=== PATIENT | male | born 1970 | race Caucasian/White ===

== ENCOUNTER 2016-07-07 00:14 | Inpatient (IN) | payer SELFPAY ==
[2016-07-07] VITALS (7 sets, daily range): BP systolic 112–141; BP diastolic 76–86; PULSE 72–107; RESP 16–20; TEMP 97.1–101.7; O2SAT 96–99
[~2016-07-07] VITALS: Ht 177.8 cm; Wt 72.0 kg
[2016-07-07] MEDS ORDERED: CLON0.1T PO (00:41)
[2016-07-07] MEDS ORDERED: LISI2.5T3 PO (00:41)
--- NOTE | 2016-07-07 00:53 | PD ---
HPI Chief Complaint: Skin Problem Time Seen by Provider: 00:35 Travel History International Travel<30 days: No Contact w/Intl Traveler<30days: No Traveled to known affect area: No History of Present Illness HPI This patient complains of a skin infection to his right arm. He frequently injects IV methamphetamine and IV heroin. This is an injection site that got infected. Duration 3 days. Severity is moderate. He is developed fever. No alleviating factors. [facility] Social History Alcohol Use: Yes Tobacco Use: Yes Substance Use: Yes Allergies-Medications (Allergen,Severity, Reaction): Coded Allergies: Zithromax (Verified Adverse Reaction, Mild, Nausea/Vomiting, 07/07/16) Reported Meds & Prescriptions Reported Meds & Active Scripts Active Reported Clonidine (Clonidine HCl) 0.1 Mg Tab 0.1 Mg PO BID Lisinopril 2.5 Mg Tab 2.5 Mg PO DAILY Review of Systems General / Constitutional: Positive: Fever Eyes: No: Visual changes HENT: No: Headaches Cardiovascular: No: Chest Pain or Discomfort Respiratory: No: Shortness of Breath Gastrointestinal: No: Abdominal Pain Genitourinary: No: Dysuria Musculoskeletal: Positive: Myalgias, Arthralgias, Pain Skin: No Rash Neurologic: No: Weakness Psychiatric: No: Depression Endocrine: No: Polydipsia Hematologic/Lymphatic: No: Easy Bruising Physical Exam Narrative GENERAL: Disheveled thin well-developed patient who is acting under the influence of drugs . SKIN: Focused skin assessment reveals no rash and nodules. Skin is Warm and dry. HEAD: Atraumatic. Normocephalic. EYES: Pupils equal and round. No scleral icterus. No injection or drainage. ENT: No nasal bleeding or discharge. Mucous membranes pink and moist. NECK: Trachea midline. No JVD. CARDIOVASCULAR: Regular rate and rhythm. No murmur appreciated. RESPIRATORY: No accessory muscle use. Clear to auscultation. Breath sounds equal bilaterally. GASTROINTESTINAL: Abdomen soft, non-tender, nondistended. Hepatic and splenic margins not palpable. MUSCULOSKELETAL: No obvious deformities. No clubbing. No cyanosis. No edema. Patient has a area of erythema and induration and warmth over the right bicep. There is an infected ulcerated area. No fluctuance or drainage. No ascending lymphangitis. NEUROLOGICAL: Awake and alert. No obvious cranial nerve deficits. Motor grossly within normal limits. Normal speech. He is a bit twitchy PSYCHIATRIC: Slightly agitated mood and affect; insight and judgment poor. Data Data Last Documented VS Vital Signs Date Time Temp Pulse Resp B/P Pulse Ox O2 Delivery O2 Flow Rate FiO2 07/07/16 00:41 106 19 141/84 96 Room Air 07/07/16 00:16 101.7 Orders Iv Access Insert/Monitor (07/07/16 00:46) Blood Culture (07/07/16 00:46) Complete Blood Count With Diff (07/07/16 00:46) Basic Metabolic Panel (Bmp) (07/07/16 00:46) Prothrombin Time / Inr (Pt) (07/07/16 00:46) Act Partial Throm Time (Ptt) (07/07/16 00:46) Vancomycin Inj (Vancomycin Inj) (07/07/16 01:00) Acetaminophen (Tylenol) (07/07/16 01:00) Humerus (Min 2vws) (07/07/16 ) Labs Laboratory Tests Test 07/07/16 00:45 White Blood Count 7.9 TH/MM3 Red Blood Count 4.03 MIL/MM3 Hemoglobin 12.8 GM/DL Hematocrit 37.9 % Mean Corpuscular Volume 94.1 FL Mean Corpuscular Hemoglobin 31.8 PG Mean Corpuscular Hemoglobin 33.8 % Concent Red Cell Distribution Width 12.5 % Platelet Count 165 TH/MM3 Mean Platelet Volume 8.0 FL Neutrophils (%) (Auto) 60.0 % Lymphocytes (%) (Auto) 24.3 % Monocytes (%) (Auto) 13.3 % Eosinophils (%) (Auto) 1.9 % Basophils (%) (Auto) 0.5 % Neutrophils # (Auto) 4.7 TH/MM3 Lymphocytes # (Auto) 1.9 TH/MM3 Monocytes # (Auto) 1.0 TH/MM3 Eosinophils # (Auto) 0.1 TH/MM3 Basophils # (Auto) 0.0 TH/MM3 CBC Comment DIFF FINAL Differential Comment Prothrombin Time 11.9 SEC Prothromb Time International 1.1 RATIO Ratio Activated Partial 22.8 SEC Thromboplast Time Sodium Level 135 MEQ/L Potassium Level 3.2 MEQ/L Chloride Level 98 MEQ/L Carbon Dioxide Level 29.0 MEQ/L Anion Gap 8 MEQ/L Blood Urea Nitrogen 9 MG/DL Creatinine 1.11 MG/DL Estimat Glomerular Filtration 71 ML/MIN Rate Random Glucose 146 MG/DL Calcium Level 8.4 MG/DL MDM Medical Decision Making Medical Screen Exam Complete: Yes Emergency Medical Condition: Yes Medical Record Reviewed: Yes Differential Diagnosis Cellulitis, abscess, sepsis Narrative Course I have reviewed the patient's electronic medical record. IV placed 2 blood culture sets obtained CBC is normal Metabolic profile is normal I gave him 1 g IV vancomycin I reviewed his right arm x-ray which shows no evidence of foreign body I gave him Tylenol for fever Patient has significant infection and requires admission for IV anabiotic's I reviewed with the hospitalist who agrees Diagnosis Primary Impression: Cellulitis of right arm Additional Impression: IV drug abuse Admitting Information Admitting Physician Requests: Admit Gabriel Ross MD Jul 07, 2016 00:53
[2016-07-07] MEDS ORDERED: VANCOMYCIN INJ 1,000 MG in SODIUM CHLOR 0.9% 250 ML INJ 250 ML IV ONE (01:00)
[2016-07-07] MEDS ORDERED: ACETAMINOPHEN 500 MG CPLT PO ONE (01:00)
[2016-07-07 01:15] LABS: AUTOMATED NEUTROPHIL # 4.7 TH/MM3 (1.8-7.7); BASOPHIL % 0.5 % (0.0-2.0); EOSINOPHIL # 0.1 TH/MM3 (0-0.4); EOSINOPHIL % 1.9 % (0.0-4.0); HEMATOCRIT 37.9 % (39.0-51.0); HEMO FLAGS DIFF FINAL; LYMPH % 24.3 % (9.0-44.0); LYMPHOCYTE # 1.9 TH/MM3 (1.0-4.8); MEAN CELL VOLUME 94.1 FL (80.0-100.0); MEAN CORPUSCULAR HEMOGLOBIN 31.8 PG (27.0-34.0); MEAN CORPUSCULAR HGB CONC 33.8 % (32.0-36.0); MONO % 13.3 % (0.0-8.0); PLATELET COUNT 165 TH/MM3 (150-450); RED BLOOD COUNT 4.03 MIL/MM3 (4.50-5.90); RED CELL DISTRIBUTION WIDTH 12.5 % (11.6-17.2); WHITE BLOOD COUNT 7.9 TH/MM3 (4.0-11.0)
[2016-07-07 01:22] LABS: APTT (PATIENT) 22.8 SEC (24.3-30.1); INTERNATIONAL NORMALIZED RATIO 1.1 RATIO; PROTHROMBIN TIME - PATIENT 11.9 SEC (9.8-11.6)
--- NOTE | 2016-07-07 01:26 | RADRPT ---
EXAM DATE/TIME: 07/07/2016 01:09 [facility] COMPARISON: No previous studies available for comparison. INDICATIONS : Possible foreign body mid bicep. MEDICAL HISTORY : None. SURGICAL HISTORY : None. ENCOUNTER: Initial ACUITY: 4 - 6 days PAIN SCORE: 8/10 LOCATION: Right upper extremity FINDINGS: Two view examination of the right humerus demonstrates no evidence of fracture or dislocation. Bony mineralization is normal. The soft tissue structures are intact. No radiopaque foreign body. CONCLUSION: Unremarkable examination of the right humerus. Sam Escamilla Jr., MD on July 07, 2016 at 1:24 Board Certified Radiologist. This report was verified electronically.
[2016-07-07 01:34] LABS: POTASSIUM 3.2 MEQ/L (3.5-5.1)
[2016-07-07] MEDS ORDERED: ACETAMINOPHEN 325 MG TAB PO PRN (02:30)
[2016-07-07] MEDS ORDERED: SODIUM CHLORIDE 0.9% FLUSH 10 ML FLUSH IV FLUSH PRN (02:30)
[2016-07-07] MEDS ORDERED: POTASSIUM CHLORIDE 10 MEQ CAP PO ONE (02:30)
[2016-07-07] MEDS ORDERED: ONDANSETRON HCL 4 MG/2 ML VIAL IVP PRN (02:30)
[2016-07-07] MEDS ORDERED: NALOXONE HCL 0.4 MG/ML AMP IV PRN (02:30)
[2016-07-07] MEDS ORDERED: Vancomycin Consult Pharmacy 1 EA OTHER SCH (02:30)
[2016-07-07] MEDS ORDERED: LORazepam 1 MG TAB PO PRN (02:30)
[2016-07-07] MEDS ORDERED: LORazepam 2 MG/ML VIAL IV PUSH PRN ×4 (02:30)
[2016-07-07] MEDS ORDERED: LORazepam 2 MG TAB PO PRN (02:30)
[2016-07-07] MEDS ORDERED: FLUMAZENIL 0.5 MG/5 ML VIAL IV PUSH PRN (02:30)
--- NOTE | 2016-07-07 02:42 | HHI.HP ---
[facility] Service [facility] Primary Care Physician Non-Staff Admission Diagnosis R arm cellulitis, IVDA Diagnoses: Chief Complaint: Right arm pain Travel History International Travel<30 Days: No Contact w/Intl Traveler <30 Da: No Traveled to Known Affected Are: No Sepsis Criteria SIRS Criteria (2 or more): Temp > 100.9 or < 96.8, Heart rate over 90 Sepsis Criteria (SIRS+source): Infect source susp/known History of Present Illness 45-year-old male with a past medical history significant for hypertension, currently on Suboxone presents to the emergency department with a wound on his right upper extremity. The patient is an IV drug user and says that he uses both methamphetamine and heroin IV. His last use was approximately 4 hours ago. The patient states that he has had a sore on his right upper extremity for the past 3 days. Today he began to have subjective fever/chills and nausea/ vomiting. On arrival to the emergency department he had a temperature of 101.7 and pulse of 107. The patient states that it hurts to move his right arm. X- ray of the humerus was within normal limits. Review of Systems Endorses subjective fever and chills Denies blurry vision, otorrhea, rhinorrhea Denies sore throat and cough No chest pain, palpitations, shortness of breath No abdominal pain Denies constipation/diarrhea. Positive nausea/vomiting Denies muscle pain/weakness No rashes Past Family Social History Past Medical History On Suboxone Hypertension Past Surgical History No past surgeries Reported Medications Reported Meds & Active Scripts Active Reported Clonidine (Clonidine HCl) 0.1 Mg Tab 0.1 Mg PO BID Lisinopril 2.5 Mg Tab 2.5 Mg PO DAILY Allergies: Coded Allergies: Zithromax (Verified Adverse Reaction, Mild, Nausea/Vomiting, 07/07/16) Family History Noncontributory Social History Patient smokes half pack per day. He does drink alcohol, however not daily. Today he had 45 beers. Uses IV methamphetamine and heroin. Physical Exam Vital Signs Vital Signs Date Time Temp Pulse Resp B/P Pulse Ox O2 Delivery O2 Flow Rate FiO2 07/07/16 00:41 106 19 141/84 96 Room Air 07/07/16 00:16 101.7 107 16 135/86 96 Room Air Physical Exam GENERAL: No acute distress SKIN: Patient with a 3 cm ulceration on the right upper extremity. The area is surrounded with erythema and induration. There is no fluctuance. HEAD: Atraumatic. Normocephalic. No temporal or scalp tenderness. EYES: Pupils equal round and reactive. Extraocular motions intact. No scleral icterus. No injection or drainage. ENT: Nose without bleeding, purulent drainage or septal hematoma. Throat without erythema, tonsillar hypertrophy or exudate. Uvula midline. Airway patent. NECK: Trachea midline. No JVD or lymphadenopathy. Supple, nontender, no meningeal signs. CARDIOVASCULAR: Regular rate and rhythm without murmurs, gallops, or rubs. RESPIRATORY: Clear to auscultation anteriorly. Breath sounds equal bilaterally. GASTROINTESTINAL: Abdomen soft, non-tender, nondistended. No hepato-splenomegaly , or palpable masses. No guarding. MUSCULOSKELETAL: Extremities without clubbing, cyanosis, or edema. No joint tenderness, effusion, or edema noted. No calf tenderness. Negative Homans sign bilaterally. NEUROLOGICAL: Sleepy. Cranial nerves II through XII intact. Motor and sensory grossly within normal limits. Normal speech. Laboratory Laboratory Tests Test 07/07/16 00:45 White Blood Count 7.9 Red Blood Count 4.03 Hemoglobin 12.8 Hematocrit 37.9 Mean Corpuscular Volume 94.1 Mean Corpuscular Hemoglobin 31.8 Mean Corpuscular Hemoglobin 33.8 Concent Red Cell Distribution Width 12.5 Platelet Count 165 Mean Platelet Volume 8.0 Neutrophils (%) (Auto) 60.0 Lymphocytes (%) (Auto) 24.3 Monocytes (%) (Auto) 13.3 Eosinophils (%) (Auto) 1.9 Basophils (%) (Auto) 0.5 Neutrophils # (Auto) 4.7 Lymphocytes # (Auto) 1.9 Monocytes # (Auto) 1.0 Eosinophils # (Auto) 0.1 Basophils # (Auto) 0.0 CBC Comment DIFF FINAL Differential Comment Prothrombin Time 11.9 Prothromb Time International 1.1 Ratio Activated Partial 22.8 Thromboplast Time Sodium Level 135 Potassium Level 3.2 Chloride Level 98 Carbon Dioxide Level 29.0 Anion Gap 8 Blood Urea Nitrogen 9 Creatinine 1.11 Estimat Glomerular Filtration 71 Rate Random Glucose 146 Calcium Level 8.4 Date/Time Procedure Status Source Growth 07/07/16 00:45 Aerobic Blood Culture Received Blood Peripheral Pending 07/07/16 00:45 Anaerobic Blood Culture Received Blood Peripheral Pending Result Diagram: 07/07/16 0045 07/07/16 0045 Assessment and Plan Problem List: (1) IV drug abuse ICD Code: F19.10 Status: Chronic (2) Cellulitis of right arm ICD Code: L03.113 Status: Acute (3) Hypertension ICD Code: I10 Status: Chronic Assessment and Plan 45-year-old IV drug user with right upper extremity cellulitis. 1. Cellulitis Patient febrile and tachycardic on arrival to the emergency department. No leukocytosis Right upper extremity x-ray within normal limits No fluctuance or areas to drain Blood cultures pending Continue vancomycin 2. IV drug abuse Patient on Suboxone in addition to IV heroin Intermittent IV methamphetamine use Consider starting methadone to avoid withdrawal 3. Hypertension Continue home medications of clonidine and lisinopril 4. Alcohol abuse CIWA protocol 5. FEN Normal saline at 100 cc/hour Repleted potassium Regular diet SCDs Physician Certification 2 Midnight Certification Type: Admission for Inpatient Services Order for Inpatient Services The services are ordered in accordance with Medicare regulations or non- Medicare payer requirements, as applicable. In the case of services not specified as inpatient-only, they are appropriately provided as inpatient services in accordance with the 2-midnight benchmark. Estimated LOS (days): 2 2 days is the estimated time the patient will need to remain in the hospital, assuming treatment plan goals are met and no additional complications. Post-Hospital Plan: Not yet determined Yessi Morgan MD R3 Jul 07, 2016 02:42
[2016-07-07] MEDS ORDERED: POTASSIUM CHLORIDE 20 MEQ CONTROLLED RELEASE TAB PO ONE (03:00)
[2016-07-07] MEDS: SODIUM CHLOR 0.9% 1000 ML INJ 1,000 ML IV SCH ×2 (03:39→12:30)
[2016-07-07] MEDS ORDERED: LISINOPRIL 5 MG TAB PO SCH (09:00)
[2016-07-07] MEDS ORDERED: cloNIDine HCL 0.1 MG TAB PO SCH (09:00)
[2016-07-07] MEDS ORDERED: SODIUM CHLORIDE 0.9% FLUSH 10 ML FLUSH IV FLUSH SCH (09:00)
[2016-07-07 09:42] LABS: BICARBONATE 27.9 MEQ/L (21.0-32.0)
[2016-07-07 10:19] LABS: CALCIUM-PROTEIN CORRECTED 7.9 MG/DL (8.5-10.1)
[2016-07-07 10:27] LABS: POTASSIUM 2.8 MEQ/L (3.5-5.1)
[2016-07-07] MEDS ORDERED: POTASSIUM CHLORIDE 10 MEQ CONTROLLED RELEASE TAB PO ONE (10:45)
[2016-07-07 11:12] LABS: MAGNESIUM 1.8 MG/DL (1.5-2.5)
--- NOTE | 2016-07-07 12:50 | HHI.PR ---
Subjective Remarks Follow-up for right arm cellulitis secondary to IV drug use Patient stated that cellulitis has improved but he is not able to move his right arm secondary to pain. He has no other complaints. He remains afebrile. patient is sleepy because he just got a dose of Ativan. Objective Vitals Vital Signs Date Time Temp Pulse Resp B/P Pulse Ox O2 Delivery O2 Flow Rate FiO2 07/07/16 08:00 97.9 84 20 135/82 98 07/07/16 04:30 97.1 72 16 136/83 99 07/07/16 03:51 98.5 07/07/16 00:41 106 19 141/84 96 Room Air 07/07/16 00:16 101.7 107 16 135/86 96 Room Air I/O 07/06/16 07/06/16 07/06/16 07/07/16 07/07/16 07/07/16 07:00 15:00 23:00 07:00 15:00 23:00 Intake Total 0 ml 517 ml Output Total 1000 ml Balance 0 ml -483 ml Intake Oral 0 ml 240 ml IV Total 277 ml Output Urine Total 1000 ml # Voids 0 # Bowel Movements 0 Result Diagram: 07/07/16 0045 07/07/16 0845 Objective Remarks GENERAL: No acute distress SKIN: Patient with a 3 cm ulceration on the right upper extremity. The area is surrounded with erythema and induration that has been improved. Cellulitis is demarcated with ink.. There is no fluctuance. CARDIOVASCULAR: Regular rate and rhythm without murmurs, gallops, or rubs. RESPIRATORY: Clear to auscultation anteriorly. Breath sounds equal bilaterally. GASTROINTESTINAL: Abdomen soft, non-tender, nondistended. No hepato-splenomegaly , or palpable masses. No guarding. Medications and IVs Current Medications Vancomycin HCl/ Sodium Chloride (Vancomycin Inj/ NS 250 ml Inj) 250 ml @ 250 mls/hr ONCE ONCE IV Last administered on 07/07/16 01:13; Start 07/07/16 at 01 :00; Stop 07/07/16 at 01:59; Status DC Acetaminophen (Tylenol) 1,000 mg ONCE ONCE PO Last administered on 07/07/16 01:13; Start 07/07/16 at 01:00; Stop 07/07/16 at 01:01; Status DC Sodium Chloride (NS Flush) 2 ml UNSCH PRN IV FLUSH FLUSH AFTER USING IV ACCESS ; Start 07/07/16 at 02:30 Sodium Chloride (NS Flush) 2 ml BID IV FLUSH ; Start 07/07/16 at 09:00 Acetaminophen (Tylenol) 650 mg Q4H PRN PO TEMP > 100.4; Start 07/07/16 at 02:30 Ondansetron HCl (Zofran Inj) 4 mg Q6H PRN IVP NAUSEA OR VOMITING; Start at 02:30 Naloxone HCl (Narcan Inj) 0.4 mg UNSCH PRN IV SEE LABEL COMMENTS; Start at 02:30 Flumazenil (Romazicon Inj) 0.2 mg Q1M PRN IV PUSH SEE LABEL COMMENTS; Start at 02:30 Lorazepam (Ativan) 1 mg Q4H PRN PO CIWA 8 - 10; Start 07/07/16 at 02:30 Lorazepam (Ativan Inj) 1 mg Q4H PRN IV PUSH CIWA 8 - 10 Last administered on 09:29; Start 07/07/16 at 02:30 Lorazepam (Ativan) 2 mg Q2H PRN PO CIWA 11-14; Start 07/07/16 at 02:30 Lorazepam (Ativan Inj) 2 mg Q2H PRN IV PUSH CIWA 11-14; Start 07/07/16 at 02:30 Lorazepam (Ativan Inj) 2 mg Q1H PRN IV PUSH CIWA 15-20; Start 07/07/16 at 02:30 Lorazepam 2 mg 2 mg Q15M PRN IV PUSH CIWA > 20; Start 07/07/16 at 02:30 Vancomycin HCl 1000 mg/Sodium Chloride 250 ml @ 250 mls/hr Q12H IV ; Start at 13:00; Status UNV Pharmacy Profile Note (Vancomycin Consult Pharmacy) 0 ml @ 0 mls/hr UNSCH OTHER ; Start 07/07/16 at 02:30 Potassium Chloride 40 meq 40 meq ONCE ONCE PO ; Start 07/07/16 at 02:30; Stop 07/07/16 at 02:31; Status Cancel Sodium Chloride (NS 1000 ml Inj) 1,000 ml @ 100 mls/hr Q10H IV Last administered on 07/07/16 03:39; Start 07/07/16 at 02:30 Clonidine (Catapres) 0.1 mg BID PO Last administered on 07/07/16 09:30; Start 07/07/16 at 09:00 Lisinopril (Prinivil) 2.5 mg DAILY PO Last administered on 07/07/16 09:30; Start 07/07/16 at 09:00 Potassium Chloride 40 meq 40 meq ONCE ONCE PO Last administered on 07/07/16 03:39; Start 07/07/16 at 03:00; Stop 07/07/16 at 03:01; Status DC Vancomycin HCl/ Sodium Chloride (Vancomycin Inj/ NS 250 ml Inj) 250 ml @ 250 mls/hr Q12H IV ; Start 07/07/16 at 13:00 Miscellaneous Information SPECIFIC LAB TO BE RAINE... ONCE ONCE .XX ; Start 07/08 at 12:45; Stop 07/08/16 at 12:46 Potassium Chloride (KCl) 60 meq ONCE ONCE PO ; Start 07/07/16 at 10:45; Stop at 10:46; Status DC A/P Problem List: (1) IV drug abuse ICD Code: F19.10 Status: Chronic (2) Cellulitis of right arm ICD Code: L03.113 Status: Acute (3) Hypertension ICD Code: I10 Status: Chronic Assessment and Plan 45-year-old IV drug user with right upper extremity cellulitis. 1. Cellulitis Patient febrile and tachycardic on arrival to the emergency department. No leukocytosis Right upper extremity x-ray within normal limits We'll get an ultrasound to rule out abscess. -Continue with vancomycin. 2. IV drug abuse Patient on Suboxone in addition to IV heroin Intermittent IV methamphetamine use We'll get a urine drug screen. -We'll need to confirm Suboxone dosage with the pharmacist. 3. Hypertension Continue home medications of clonidine and lisinopril 4. Alcohol abuse [facility] protocol 5.Hypokalemia -Replenish DVT prophylaxis SCDs Discharge Planning Patient continues to require IV antibiotics. Chantal Patel MD Jul 07, 2016 12:50
[2016-07-07] MEDS ORDERED: VANCOMYCIN INJ 1,000 MG in SODIUM CHLOR 0.9% 250 ML INJ 250 ML IV SCH (13:00)
[2016-07-07] MEDS ORDERED: VANCOMYCIN 1,000 MG/NS 250 ML IV SCH ×2 (13:00)
--- NOTE | 2016-07-07 15:06 | RADRPT ---
EXAM DATE/TIME: 07/07/2016 13:53 [facility] COMPARISON: No previous studies available for comparison. INDICATIONS : Right upper arm abscess. MEDICAL HISTORY : Hypertension. Arthritis. IV drug use. SURGICAL HISTORY : None. ENCOUNTER: Initial ACUITY: 1 day PAIN SCORE: 3/10 LOCATION: Right upper arm. AREA EVALUATED: Right upper arm. FINDINGS: The area of swelling in the arm was scanned. There is prominent thickening of the subcutaneous soft tissues with heterogeneous in the lacy echotexture. No drainable fluid collections seen. On color D oppler, there is no significant hyperemia. A superficial vein in the subcutaneous tissues is present and no flow seen within the lumen of that vein. CONCLUSION: Marked soft tissue swelling without drainable fluid collections and without significant hyperemia. Sam Shaver MD on July 07, 2016 at 15:02 Board Certified Radiologist. This report was verified electronically.
[2016-07-07 16:25] LABS: AMPHETAMINE, URINE POS (NEG); BARBITURATES, URINE NEG (NEG); COCAINE, URINE POS (NEG)
[2016-07-07] MEDS ORDERED: PANTOPRAZOLE SOD 40 MG DELAYED RELEASE TAB PO SCH (20:15)
[2016-07-07] MEDS ORDERED: KETOROLAC TROMETHAMINE 30 MG/ML (IVP) VIAL IV PUSH ONE (20:15)
[2016-07-08] MEDS ORDERED: PHARMACY ORDERED LAB ONE (12:45)
== END 2016-07-07 20:27 | disposition left against medical advice (07) | DRG 603 ==
LOC: NEPE 00:14 → NEDA 02:21 → HOCB 04:33
PROVIDERS: ADMIT Family Medicine; ATTEND Family Medicine
DX: L03.113 Cellulitis of right upper limb (principal); I10 Essential (primary) hypertension; E87.6 Hypokalemia; F11.10 Opioid abuse, uncomplicated; F17.210 Nicotine dependence, cigarettes, uncomplicated; F15.90 Other stimulant use, unspecified, uncomplicated; Z88.1 Allergy status to other antibiotic agents
CPT/HCPCS: 73060; 76882; 80048; 80307; 83735; 84132; 84155; 85025; 85610; 85730; 87040; 96365; J2060; J3370; J7030; J7050